=== PATIENT | female | born 1970 | race Caucasian/White ===

== ENCOUNTER → 2022-08-26 13:19 | Outpatient (BNVA) | payer OTHER, SELFPAY | PROVIDERS: Visit Provider Physician Assistant | DX: M23.91 Unspecified internal derangement of right knee (principal); M25.562 Pain in left knee | CPT/HCPCS: 73564; 99204 ==

== ENCOUNTER → 2022-09-01 09:33 | Outpatient (BNVA) | payer OTHER, SELFPAY | PROVIDERS: Visit Provider Physician Assistant | DX: M23.91 Unspecified internal derangement of right knee (principal); M25.562 Pain in left knee | CPT/HCPCS: 99214 ==

== ENCOUNTER → 2022-09-03 11:14 | Outpatient (BNVA) | payer OTHER, SELFPAY | PROVIDERS: Visit Provider Internal Medicine | DX: S80.01XD Contusion of right knee, subsequent encounter (principal); X58.XXXD Exposure to other specified factors, subsequent encounter; M25.461 Effusion, right knee | CPT/HCPCS: 99213 ==

== ENCOUNTER → 2022-09-09 13:34 | Outpatient (BNVA) | payer OTHER, SELFPAY | PROVIDERS: Visit Provider Physician Assistant | DX: M23.91 Unspecified internal derangement of right knee (principal); M25.562 Pain in left knee | CPT/HCPCS: 99214 ==

== ENCOUNTER → 2022-09-16 14:54 | Outpatient (BNVA) | payer OTHER, SELFPAY | PROVIDERS: Visit Provider Physician Assistant | DX: M23.91 Unspecified internal derangement of right knee (principal); M25.562 Pain in left knee | CPT/HCPCS: 99213 ==

== ENCOUNTER → 2022-10-07 15:26 | Outpatient (BNVA) | payer OTHER, SELFPAY | PROVIDERS: Visit Provider Physician Assistant | DX: M23.91 Unspecified internal derangement of right knee (principal) | CPT/HCPCS: 99213 ==

== ENCOUNTER 2022-10-15 18:02 | Outpatient (REF) | payer OTHER, SELFPAY | END 2022-10-15 18:03 | disposition home or self-care (01) | LOC: HO.MRI 18:02 | PROVIDERS: Visit Provider Internal Medicine | DX: Z13.89 Encounter for screening for other disorder (principal) ==

== ENCOUNTER → 2022-10-26 12:52 | Outpatient (BNVA) | payer OTHER, SELFPAY | PROVIDERS: Visit Provider Physician Assistant Medical | DX: M23.91 Unspecified internal derangement of right knee (principal) | CPT/HCPCS: 99213 ==

== ENCOUNTER → 2022-10-29 11:17 | Outpatient (BNVA) | payer OTHER, SELFPAY | PROVIDERS: Visit Provider Physician Assistant | DX: S82.141D Displaced bicondylar fracture of right tibia, subsequent encounter for closed fracture with routine healing (principal); X58.XXXD Exposure to other specified factors, subsequent encounter | CPT/HCPCS: 99213 ==